=== PATIENT | female | born 1945 | race Caucasian/White ===

== ENCOUNTER 2017-10-17 19:04 | Emergency (ER) | payer OTHER, MEDICARE ==
--- NOTE | 2017-10-17 20:23 | RADIOLOGY REPORT ---
EXAMINATION: XR WRIST, LEFT CLINICAL INFORMATION: Fall COMPARISON: None TECHNIQUE: PA, lateral, and oblique views of the left wrist. FINDINGS: There is a comminuted fracture of the distal radius which extend into the articular surface, there is a fracture of the ulnar styloid. There is displacement of the fracture posteriorly. There is underlying degenerative osteoarthritis of the carpometacarpal joints especially the first. IMPRESSION: Fracture dislocation of the wrist, comminuted intra-articular fracture of the distal radius and ulnar styloid. Underlying degenerative osteoarthritis.
--- NOTE | 2017-10-17 22:16 | ED HAND/WRIST INJURY COMPLAINT ---
History of Present Illness General Chief Complaint: Fall Stated Complaint: PT FELL AND HURT HER LT WRIST POSSIBLE BROKEN Source: patient, family, old records Exam Limitations: no limitations Vital Signs & Intake/Output Vital Signs & Intake/Output Vital Signs Date Time Temp Pulse Resp B/P B/P Pulse O2 O2 Flow FiO2 Mean Ox Delivery Rate 10/17 2240 98.6 72 18 138/62 100 Room Air 10/17 2210 70 18 142/61 100 Room Air 10/17 2155 74 18 149/82 100 Nasal 2.0L Cannula 10/17 2140 98.1 72 18 124/74 100 Nasal 2.0L Cannula 10/17 1913 98.2 84 22 148/82 98 Allergies Coded Allergies: No Known Allergies (10/17/17) Reconcile Medications Hydrocodone/Acetaminophen ([place] 5-325 Tablet) 5 MG-325 MG TABLET 1 TAB PO Q6P PRN severe pain Triage Note: PER PT WALKING DOG WHO GOT SCARED AND PT FELL ONTO L WRIST "IT IS BROKEN" SPLINTED REFUSED MOTRIN REQUESTS VICODIN Triage Nurses Notes Reviewed? yes Occurred: just prior to arrival Duration: minute(s):, constant, continues in ED Timing: recent history Injury Environment: home Severity: severe Pain/Injury Location: Left: Wrist. Context: fall Method of Injury: fall Modifying Factors: Improves With: immobilization. Worsens With: jarring, movement. Associated Symptoms: GCS 15 since LMP (ages 10-50): post menopausal : No Patient currently breastfeeds: No HPI: Prior to admission while walking her dog she lost her balance and fell onto her outstretched left hand. She complains of left wrist pain limited range of motion. She denies other injury fever chills nausea vomiting diarrhea abdominal pain chest pain shortness breath headache dysuria rash bleeding. She is right-hand dominant Past History Travel History Traveled to [place] past 21 day No Medical History Any Pertinent Medical History? see below for history Neurological: NONE EENT: NONE Cardiovascular: CHOL Respiratory: NONE Gastrointestinal: NONE Hepatic: NONE Renal: NONE Musculoskeletal: NONE Psychiatric: NONE Endocrine: NONE Surgical History Surgical History: non-contributory Psychosocial History What is your primary language Moh[place] Tobacco Use: Never used Family History Hx Contributory? No Review of Systems Review of Systems Constitutional: Reports: no symptoms. EENTM: Reports: no symptoms. Respiratory: Reports: no symptoms. Cardiovascular: Reports: no symptoms. GI: Reports: no symptoms. Genitourinary: Reports: no symptoms. Musculoskeletal: Reports: see HPI, joint pain, joint swelling. Skin: Reports: no symptoms. Neurological/Psychological: Reports: no symptoms. Hematologic/Endocrine: Reports: no symptoms. Immunologic/Allergic: Reports: no symptoms. All Other Systems: Reviewed and Negative Physical Exam Physical Exam General Appearance: well developed/nourished, alert, awake, anxious, moderate distress Head: atraumatic, normal appearance Eyes: Bilateral: normal appearance, PERRL, EOMI. Ears, Nose, Throat: normal pharynx, normal ENT inspection, hearing grossly normal Neck: normal inspection, supple, full range of motion, no midline tenderness Cardiovascular/Respiratory: normal breath sounds, normal peripheral pulses, regular rate/rhythm, no respiratory distress Back: normal inspection, normal range of motion Shoulder Left: normal range of motion, normal inspection Shoulder Right: normal range of motion, normal inspection Elbow Left: normal range of motion, normal inspection Elbow Right: normal range of motion, normal inspection Forearm Left: normal range of motion, normal inspection Forearm Right: normal range of motion, normal inspection Wrist Left: swelling, tenderness, bone tenderness, evidence of injury, soft tissue tenderness, limited range of motion Wrist Right: normal range of motion, normal inspection Hand Left: normal inspection, normal range of motion Hand Right: normal inspection, normal range of motion Reflexes: 2+: bicep (R), bicep (L). Neurologic/Tendon: normal sensation, normal motor functions, normal tendon functions Skin: intact, normal color, warm/dry Lymphatic: no anterior cervical alda Progress Differential Diagnosis: dislocation, fracture Plan of Care: Orders Procedure Date/time Status Durable Medical Equipment 10/17 2129 Active Diagnostic Imaging: Viewed by Me: Radiology Read. Discussed w/RAD: Radiology Read. Radiology Impression: Fracture dislocation of the wrist, comminuted intra- articular fracture of the distal radius and ulnar styloid. Underlying degenerative osteoarthritis., Improved alignment to distal left radial fracture following casting and reduction. Departure Departure Time of Disposition: 2258 Disposition: HOME OR SELF CARE Condition: Stable Clinical Impression Primary Impression: Fracture dislocation of wrist Referrals: Irina Wynne MD Call for orthopedics follow up Traci PIERRE,Jos Sofia (PCP/Family) Departure Forms: Customer Survey General Discharge Information Prescriptions: Current Visit Scripts Hydrocodone/Acetaminophen ([place] 5-325 Tablet) 1 TAB PO Q6P PRN severe pain #15 TAB Procedures Splinting Location: L wrist Manual Alignment Performed: Yes Hand-Made Type: orthoglass (sugartongs) Splint: sugar-tong Splint Applied By: splint applied by me Pre-Proc Neuro Vasc Exam: normal Post-Proc Neuro Vasc Exam: normal Joint Reduction Joint Reduction Site: L wrist Conscious Sedation: conscious sedation, performed by me Reduction Attempts: 1 Pre-Procedure NV Exam: Yes Post-Procedure NV Exam: Yes Post Joint Reduction Film: joint reduced Procedural Sedation Sedation Type: moderate Indication: reduction of fx / dislocation ASA Classification: P1 Airway: normal anatomy Mallampati Classification: Class 2 Preparation: plan explained to patient, hospital consent signed, oximetry during procedure, IV access obtained, suction immediately avail, second crusher used Sedation: etomidate, fentanyl Complications During/After Procedure: O2 desaturation, required BVM-PPV Post Sedation Score: see sedation record I personally performed: sedation, procedure Intra-Service Time: 30 minutes or less
[2017-10-17 22:40] VITALS: BP 138/62
[2017-10-17] MEDS ORDERED: NORCO 5-325 TA1 EACH PO (23:01)
--- NOTE | 2017-10-17 23:20 | RADIOLOGY REPORT ---
EXAMINATION: WRIST 3 VIEWS, LEFT CLINICAL INFORMATION: Closed fracture followup. COMPARISON: Same day left wrist radiographs. TECHNIQUE: AP, lateral, oblique views of the left wrist are provided. FINDINGS: Again identified is the distal left radial fracture. Improved alignment is noted following reduction and casting. The overlying cast obscures fine bony detail. Again identified are degenerative changes of the first carpal metacarpal joint. The proximal carpal row is intact. IMPRESSION: Improved alignment to distal left radial fracture following casting and reduction.
== END 2017-10-17 23:30 ==
LOC: ERH 19:04
DX: S52.572A Other intraarticular fracture of lower end of left radius, initial encounter for closed fracture (principal); S52.612A Displaced fracture of left ulna styloid process, initial encounter for closed fracture; W19.XXXA Unspecified fall, initial encounter; Y93.K1 Activity, walking an animal; Y93.9 Activity, unspecified
CPT/HCPCS: 73100-LT; 73110-LT; 96374; 96375; J2001; J2310; J2405